=== PATIENT | female | born 1985 | race Caucasian/White ===

== ENCOUNTER → 2017-11-01 | Day surgery (SDC) | payer BC ==
[~2017-11-01] VITALS: Ht 157.5 cm; Wt 52.2 kg
[~2017-11-01] MED LIST: ACETAMINOPHEN 1000 MG/100 ML 100 ML IV ONE; BUPIVACAINE HCL PF 0.5% 30 ML VIAL ONE; CHLORHEXIDINE GLUCONATE 2 % 1 PACK (2 CLOTHS) TOPICAL PRN; DEXAMETHASONE SOD PHOS 4 MG/ML VIAL IV ONE; DO NOT ADM ANY ANTICOAGULANT DRUGS PRN; FERR325T18 PO; GLYCOPYRROLATE 1 MG/5 ML SYRINGE IV PUSH ONE; KETOROLAC TROMETHAMINE 30 MG/ML (IVP) VIAL IV PUSH ONE; LACTATED RINGER'S 1000 ML INJ 1,000 ML IV ONE; LACTATED RINGER'S 1000 ML IV PRN; LACTCAP8 PO; LIDOCAINE 1%/EPINEPHrine 1:100,000 SOLN 30 ML VIAL ONE; LIDOCAINE HCL 1% PF 5 ML SYRINGE OTHER ONE; METOPROLOL TARTRATE 25 MG TAB PO PRN; MIDAZOLAM HCL 2 MG/2 ML VIAL ONE; MORPHINE SULFATE 4 MG/ML INJ IV PRN; NEOSTIGMINE 5 MG/5 ML SYRINGE IV PUSH ONE; ONDANSETRON HCL 4 MG/2 ML VIAL IV ONE; ONDANSETRON HCL 4 MG/2 ML VIAL IV PUSH PRN; PHENYLEPH/NS 1000 MCG/10 ML SYR IV ONE; POVIDONE IODINE 5% (ANTISEPSIS KIT) 4 APPLICATIONS EACH NARE PRN; PROPOFOL 200 MG/20 ML AMP IV ONE; ROCURONIUM INJ 50 MG/5 ML SYRINGE IV PUSH ONE; SILVER SULFADIAZINE/LIDOCAINE CREAM 60 GM JAR RECTAL SCH; SODIUM CHLORID 0.9% 500 ML IV PRN; [UNRECOGNIZED DRUG - OTHER] PO; oxyCODONE/ACETAMINOPHEN 10 MG/325 MG TAB PO PRN
--- NOTE | 2017-11-01 07:17 | PD.HP.UP ---
H&P Update Note The Pre-Admit History and Physical Examination regarding the above named patient was reviewed (including, but not limited to, vital signs, heart, lungs, co-morbid conditions), and upon re-examination it is noted that: the patient's condition has not significantly changed since the last examination. Carson Vegas MD Nov 01, 2017 07:17
[2017-11-01 07:44] LABS: AUTOMATED NEUTROPHIL # 1.7 TH/MM3 (1.8-7.7); BASOPHIL # 0.1 TH/MM3 (0-0.2); BASOPHIL % 1.7 % (0.0-2.0); EOSINOPHIL # 0.2 TH/MM3 (0-0.4); EOSINOPHIL % 4.1 % (0.0-4.0); HEMATOCRIT 24.6 % (35.0-46.0); HEMOGLOBIN 7.5 GM/DL (11.6-15.3); LYMPH % 37.6 % (9.0-44.0); LYMPHOCYTE # 1.4 TH/MM3 (1.0-4.8); MEAN CELL VOLUME 59.3 FL (80.0-100.0); MEAN CORPUSCULAR HEMOGLOBIN 18.2 PG (27.0-34.0); MEAN CORPUSCULAR HGB CONC 30.7 % (32.0-36.0); MEAN PLATELET VOLUME 8.3 FL (7.0-11.0); MONOCYTE # 0.4 TH/MM3 (0-0.9); NEUT % 45.6 % (16.0-70.0); PLATELET COUNT 280 TH/MM3 (150-450); RED BLOOD COUNT 4.15 MIL/MM3 (4.00-5.30); RED CELL DISTRIBUTION WIDTH 21.5 % (11.6-17.2); WHITE BLOOD COUNT 3.7 TH/MM3 (4.0-11.0)
[2017-11-01 11:40] VITALS: BP 92/53; PULSE 83; RESP 16; O2SAT 100
--- NOTE | 2017-11-06 08:01 | MP ---
cc: Carson Vegas MD DATE OF OPERATION: 11/01/2017 PREOPERATIVE DIAGNOSIS: Symptomatic grade 3 hemorrhoids. PROCEDURE PERFORMED: Exam under anesthesia, with anorectoplasty. POSTOPERATIVE DIAGNOSIS: Symptomatic grade 3 hemorrhoids. DESCRIPTION OF PROCEDURE: The patient was placed in the supine position. After adequate general anesthesia, she was placed in the prone jackknife position and supported appropriately. The buttocks were then taped apart and prepped with Betadine solution and draped in the usual sterile fashion. Local anesthesia was obtained by injection of 1% Xylocaine/0.5 percent Marcaine with epinephrine. Anal canal was gently dilated and a half perez retractor inserted. Examination revealed rather large hemorrhoids in the left lateral position in the right posterior position. The right anterior was a little bit smaller, mostly internal. First, an elliptical incision was made over the large hemorrhoidal mass in the left lateral quadrant, excising off the internal and external sphincters. The pedicle was narrowed and divided using electrocautery. The mucosal defect was then closed with a running chromic catgut suture, as was the anoderm. Similar dissection was performed in the right posterior quadrant and a smaller dissection in the right anterior . Each of the incisions were closed with running chromic catgut sutures. After excision, the lumen of the anal canal was more than adequate. Hemostasis appeared adequate at all 3 incision sites. A small Surgicel dressing placed in the anal canal and a large fluff dressing placed externally. The patient tolerated the procedure quite well and was brought to the recovery room in stable condition. Sponge and needle counts were correct at the end of the procedure. Carson Vegas MD [facility] , 11:27 PM , 11:52 PM
== END | disposition home or self-care (01) ==
LOC: HSDC 06:14
PROVIDERS: ATTEND Colon & Rectal Surgery
DX: K64.2 Third degree hemorrhoids (principal); K64.4 Residual hemorrhoidal skin tags
CPT/HCPCS: 00902; 46260; 84702; 85025; 88304; J0131; J1100; J1885; J2250; J2370; J2405; J2710; J3010; J7120